=== PATIENT | female | born 1965 | race Caucasian/White ===

== ENCOUNTER 2019-01-11 15:12 | Emergency (ER) | payer OTHER ==
[~2019-01-11] VITALS: Ht 172.7 cm; Wt 76.2 kg
[2019-01-11 15:19] VITALS: BP 153/68
[2019-01-11] MEDS ORDERED: LIDOCAINE HC28.35 GM TOP (15:46)
[2019-01-11] MEDS ORDERED: VALSARTAN-HCTZ1 EAC2 PO (15:46)
[2019-01-11] MEDS ORDERED: PREMARIN0.3 MG PO (15:47)
[2019-01-11] MEDS ORDERED: FLUOXETINE HCL20 M1 PO (15:47)
[2019-01-11] MEDS ORDERED: CELEBREX 200 M200 M1 PO (15:47)
[2019-01-11] MEDS ORDERED: ZOCOR20 MG PO (15:47)
[2019-01-11] MEDS ORDERED: TRAZODONE HCL100 MG PO (15:48)
[2019-01-11] MEDS ORDERED: NEXIUM40 MG PO (15:49)
[2019-01-11] MEDS ORDERED: FLONASE 0.05%50 MCG NASAL (15:49)
[2019-01-11] MEDS ORDERED: POTASSIUM20 PO (15:50)
[2019-01-11] MEDS ORDERED: KLOR-CON20 ME1 PO (15:50)
[2019-01-11] MEDS ORDERED: NAPROSYN500 MG PO (16:00)
== END 2019-01-11 16:30 | disposition home or self-care (01) ==
LOC: ER 15:12
DX: M25.561 Pain in right knee (principal); M19.90 Unspecified osteoarthritis, unspecified site